=== PATIENT | female | born 1970 | race Hispanic/Latino ===

== ENCOUNTER 2018-03-13 07:25 | Day surgery (SDC) | payer BC ==
[2018-03-06 09:06] VITALS: BMI 21.9
[2018-03-13 08:41] VITALS: RESP 18; O2SAT 100
[2018-03-13 08:53] LABS: BASO % 0.8 % (0.0-2.0); EOS # 0.1 K/uL (0.0-0.7); EOS % 1.3 % (0.0-4.0); LYMPH # 1.1 K/uL (1.0-4.3); MEAN CORPUSCULAR HEMOGLOBIN 33.8 pg (27.0-31.0); MEAN CORPUSCULAR HGB CONC 34.8 g/dL (33.0-37.0); MEAN PLATELET VOLUME 7.8 fl (7.2-11.7); MONO # 0.6 K/uL (0.0-0.8); NEUT # 3.8 K/uL (1.8-7.0); NEUT % 68.9 % (50.0-75.0); NRBC % 0.3 % (0.0-0.0); RBC 4.45 Mil/uL (3.80-5.20); RED CELL DISTRIBUTION WIDTH 12.7 % (11.5-14.5); WHITE BLOOD COUNT 5.5 K/uL (4.8-10.8)
--- NOTE | 2018-03-13 12:12 | CP.SDSHP ---
Same Day Surgery H & P - History Proposed Procedure: hysteroscopy D&C, polypectomy Pre-Op Diagnosis: postmenopausal bleeding - Allergies Allergies: Allergies clarithromycin [From Biaxin] Allergy (Verified 03/06/18 09:08) RASH error levofloxacin [From Levaquin] Allergy (Verified 03/06/18 09:08) unable to sleep walnut Allergy (Verified 03/13/18 08:55) SWELLING side of gums get s lump - Physical Exam Vital Signs: Vital Signs 03/13/18 08:34 Temperature 97.8 F Pulse Rate 60 Respiratory 18 Rate Blood Pressure 109/70 O2 Sat by Pulse 100 Oximetry Neuro: WNL Heart: WNL Lungs: WNL GI: WNL - {Optional Preform as Required} Breast: WNL Abdomen: WNL Rectal: WNL Integument: WNL BONE CHAR OPERATOR: WNL : WNL - Impression Pt. Evaluated Today:Candidate for Anesthesia & Procedure: Yes - Date & Time Date: 03/13/18 Time: 12:10 Short Stay Discharge - Short Stay Discharge Admitting Diagnosis/Reason for Visit: N84.0 Disposition: HOME/ ROUTINE Referrals: Aneesh Barber MD [Primary Care Provider] - Follow-up: f/u in office in 2 wks Progress Note/Discharge Note with Instructions: discharge patient when meets floor criteria
[2018-03-13] MEDS ORDERED: Midazolam 2 MG/2 ML VIAL ONE (12:27)
[2018-03-13] MEDS ORDERED: Propofol 10 mg/ml Inj (20 ML) ONE (12:27)
[2018-03-13] MEDS ORDERED: Lidocaine 1% 5ml Abboject IV ONE (12:28)
[2018-03-13] MEDS ORDERED: Dexamethasone 4 mg/1 ml ONE (12:30)
[2018-03-13] MEDS ORDERED: Lactated Ringer's 1,000 ML IV ONE (12:30)
[2018-03-13] MEDS ORDERED: Doxycycline 100 mg Inj ONE (12:31)
[2018-03-13] MEDS ORDERED: Oxycodone/Acetaminophen 5/325 mg Tab PO PRN (13:50)
[2018-03-13] MEDS ORDERED: Lactated Ringer's 1,000 ML IV SCH ×2 (14:00)
[2018-03-13 15:47] VITALS: PULSE 57
[2018-03-13 15:56] VITALS: BP 111/55; TEMP 98
--- NOTE | 2018-03-17 01:54 | OP ---
PROCEDURE DATE: 03/13/2018 PREOPERATIVE DIAGNOSIS: Postmenopausal bleeding from cervical polyp. POSTOPERATIVE DIAGNOSIS: Postmenopausal bleeding from cervical polyp. PROCEDURE: Diagnostic hysteroscopy with polypectomy. SURGEON: Azra White MD TYPE OF ANESTHESIA: General endotracheal. ANESTHESIA ADMINISTERED BY: Mookie Barahona MD IV FLUID INTAKE: 600 mL, distention media in 6000 mL normal saline, distention media out 5700 mL of normal saline, and distention media deficit 300 mL. ESTIMATED BLOOD LOSS: 10 mL. URINE OUTPUT: 100 mL. COMPLICATIONS: None. SPECIMEN: Cervical polyp. INDICATIONS: This is a 46-year-old nulliparous female who has had an abnormal, irregular postmenopausal bleeding for the past 4 years, in office endometrial biopsy, which showed secretory endometrium, recent saline sonohysterogram showed cervical polyps. The patient has been on estrogen patch and oral progesterone pills for the past 4 years. The risks and benefits and alternatives of the procedure were discussed with the patient. She understood the risk of the procedure include, but not limited to uterine perforation and fluid overload. The patient verbally consented to procedure and signed informed consent. DESCRIPTION OF PROCEDURE: The patient was taken to the OR and general anesthesia was administered without difficulty. The patient was placed in dorsal lithotomy position with candy-cane stirrups and exam under anesthesia revealed normal anteverted uterus. The patient was prepped and draped in the normal sterile fashion. A weighted speculum was inserted in the posterior aspect of the vagina and then red rubber tip catheter was inserted into the urethra in order to drain the bladder, clear urine was noted. Single tooth tenaculum was used to grasped the anterior lip of the cervix. The uterus was sounded about 6 cm with cervical os was sequentially dilated, a 5-mm hysteroscope using the Hegar dilator, 30-degree hysteroscope was introduced under direct visualization, and the uterus was sounded under normal saline. It was noted at this time that the uterine lining appeared to be without pathology noted. Bilateral tubal ostia appeared to be normal. No abnormal pathology noted in the uterine cavity. Upon withdrawal of the hysteroscope, it was noted two cervical polyps in the cervical canal, manual removal with instrumentation introduced through the hysteroscope was used to resect the polyps as best as possible. Hysteroscope was removed and it was attempted to introduce the MyoSure device, which was unsuccessful. At this point smallest sharp curette to remove the polyps manually. The hysteroscope was reintroduced in order to ensure that they have been resected. There was no bleeding noted and no other pathology noted in the uterine cavity. All scrapings were sent to pathology. The tenaculum was removed from the cervix and good hemostasis was noted at the puncture site. The patient tolerated the procedure well. The instruments and sponge counts were correct x2. The patient was awoken from general anesthesia and taken to recovery room in stable condition. The patient was given prescription for Percocet 5 tabs and given instructions to follow up in 2 weeks in the office. There were no other complications from the procedure. Azra White MD
== END 2018-03-13 15:45 | disposition home or self-care (01) ==
LOC: H.OPSURG 07:25
PROVIDERS: ATTEND Obstetrics & Gynecology
DX: N95.0 Postmenopausal bleeding (principal); N84.0 Polyp of corpus uteri; N84.1 Polyp of cervix uteri
CPT/HCPCS: 36415; 58558; 85025; 88305; J1100; J2250; J2704; J2765; J3010; J7030; J7120